=== PATIENT | female | born 2000 | race African-American/Black ===

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

== ENCOUNTER 2024-02-02 00:20 | Emergency (ER) | payer MEDICAID, SELFPAY ==
[2024-02-02] VITALS (7 sets, daily range): BP systolic 98–150; BP diastolic 49–81; PULSE 75–134; RESP 14–16; TEMP 36.8–36.9; O2SAT 94–98; BMI 15.9
[2024-02-02 01:47] LABS: Basophils Percent Auto 0.3 % (0-2); Eosinophils Percent Auto 0.2 % (0-4); Hematocrit 38.4 % (37.0-47.0); Hemoglobin 13.7 g/dl (12.0-16.0); Imm Gran Abs Auto 0.04 X10*3/uL (0.00-0.03); Imm Gran Pct Auto 0.7 % (0.0-0.4); Lymphocytes Absolute Auto 0.6 X10*3/uL (1.2-4.9); Lymphocytes Percent Auto 10.2 % (20-40); MANUAL DIFF FLAG NO; Mean Corpuscular HGB Conc 35.7 g/dl (31.0-35.0); Mean Corpuscular Hemoglobin 26.9 pg (27.0-33.0); Mean Corpuscular Volume 75.3 fL (80.0-98.0); Mean Platelet Volume 9.5 fL (9.4-12.3); Monocytes Absolute Auto 0.5 X10*3/uL (0.1-1.2); Neutrophils Absolute Auto 4.7 x10*3/uL (2.0-8.3); Neutrophils Percent Auto 79.6 % (45-73); Platelet Count 395 X10*3/uL (160-400); Red Cell Distribution Width 11.9 % (11.0-16.0); White Blood Count 5.9 X10*3/uL (4.8-10.8)
[2024-02-02 02:00] LABS: Anion Gap 18 (12-20); Blood Urea Nitrogen 13 mg/dL (9-16); Calcium 10.6 mg/dL (8.4-10.2); Carbon Dioxide 33 mmol/L (22-29); Chloride 81 mmol/L (96-108); Creatinine Clr Calc Pharmacy 77.9; Estimated Glomerular Filt Rate > 60; Glucose Random 127 mg/dL (60-115); Sodium 129 mmol/L (135-145)
[2024-02-02 02:03] LABS: Appearance Urine Hazy; Color Urine Orange; Glucose Urine UA Negative (Negative); Leukocyte Esterase Urine Trace (Negative); Nitrite Urine Positive (Negative); PH 6.5 (5.0-9.0); UMIC TRIGGER UACC YES; Urine Blood Negative (Negative); Urine Ketones Trace mg/dL (Negative); Urine Protein 100 (2+) mg/dL (Neg-Trace)
[2024-02-02 02:12] LABS: Bacteria Urine 4+ (None Seen); Squamous Epithelial Cell Urine >20 /HPF (0-2); UACC Culture Trigger YES
[2024-02-02 02:32] LABS: HCG Quantitative > 225000 mIU/mL
[2024-02-02] MEDS: 0.9 % Sodium Chloride 1,000 ML 999 ML IV (04:03)
[2024-02-02] MEDS: ondansetron HCL 4 MG/2 ML VIAL IVPUSH (04:08)
--- NOTE | 2024-02-02 06:31 | ED.NAVMDI ---
HPI - Nausea/Vomiting/Diarrhea General Chief complaint: Nausea/Vomiting/Diarrhea Stated complaint: weakness Time Seen by Provider: 02/02/24 06:29 Source: patient Mode of arrival: ambulatory Limitations: no limitations History of Present Illness HPI Narrative: 23 yo female who is 12 weeks presents to the ER for evaluation of 4 days of N/V. She states she has been vomiting everyday of her , not able to eat and losing weight. She was at [facility] 2 weeks ago for dehydration. She states she has heartburn and can't eat but she can tolerate liquids. She has been drinking cheery Adolfo Aid. She reports throat and rib pain associated with the daily vomiting. No abdominal pain, uterine cramping or vaginal bleeding. She is not taking medications for nausea. She has an appointment with [facility] tomorrow. She thinks so lost about 20 lbs elicited complaint: nausea and vomiting Onset (ago): week(s) Description of vomiting: bilious Associated nausea: Yes Associated abdominal pain: No Location of pain: none Exacerbating factors: eating Relieving factors: none Context: other () Associated symptoms: loss of appetite, malaise, nausea/vomiting and weakness Related Data Previous Rx's ?Medication ?Instructions ?Recorded ibuprofen 600 mg tablet 600 mg PO Q6H PRN pain #30 tabs 06/20/21 medroxyprogesterone 150 mg/mL 150 mg IM [id number] #1 mL 01/16/22 intramuscular suspension (Depo-Provera) ondansetron 4 mg disintegrating 4 mg PO DAILY PRN nausea and 02/02/24 tablet vomiting #7 tabs Allergies Allergy/AdvReac Type Severity Reaction Status Date / Time No Known Allergies Allergy Unverified 02/02/24 01:23 [No Known Allergies*] Review of Systems Review of Systems: Yes all other systems are reviewed and are negative Gastrointestinal: Gastrointestinal: Reports nausea PMFSH Social History Social History Alcohol intake: never Patient Tobacco Use Status: Never used Tobacco Smoked in Last 30 Days: No Use of substances other than those prescribed or required for medical reasons: No Substance Use Type: Marijuana Advance Directives: No Advance Directives Information Provided: No Patient : Yes Physical Exam Vital Signs: Vital Signs: Last Vital Signs Temp 98.4 F 02/02/24 03:21 Pulse 77 02/02/24 08:43 Resp 14 02/02/24 08:43 BP 99/49 L 02/02/24 08:43 Pulse Ox 98 02/02/24 08:43 O2 Del Method Room Air 02/02/24 08:43 BMI result Body Mass Index 15.9 Appearance: Alert. Oriented X3. No acute distress. Thin, frail Head: normocephalic, atraumatic. Eyes: Pupils equal, round and reactive to light. ENT: Pharynx normal. No tonsillar swelling or exudate. Neck: Normal inspection. Neck supple. CVS: Normal heart rate and rhythm. Pulses normal. Respiratory: No respiratory distress. Breath sounds normal. Abdomen: Soft and nontender. +BS x4 Skin: Skin warm and dry. Normal skin color. Normal skin turgor. No rashes. Extremities: No lower extremity edema. No joint swelling. Neuro/psych: Oriented X 3. No motor deficit. No sensory deficit. CN II-XII intact. Normal speech and cognition. Medications Administered Discontinued Medications Generic Name Dose Route Start Last Admin Trade Name Freq PRN Reason Stop Dose Admin Sodium Chloride 1,000 mls @ 999 mls/hr 02/02/24 04:00 02/02/24 05:01 Ns IV 02/02/24 05:00 Infused .Q1H1M BARB Infusion Lactated Ringer's 1,000 mls @ 999 mls/hr 02/02/24 06:45 02/02/24 08:28 Lr IV 02/02/24 07:45 Infused .Q1H1M BARB Infusion Ondansetron HCl 4 mg 02/02/24 03:53 02/02/24 04:08 Ondansetron Hcl 4 Mg/2 Ml Vial IVPUSH 02/02/24 03:54 4 mg ONCE ONE Administration Potassium Chloride 40 meq 02/02/24 06:45 02/02/24 07:04 Potassium Chloride Packet 20 Meq Packet PO 02/02/24 06:46 40 meq ONCE ONE Administration Medical Decision Making Medical Decision Making MDM Narrative: 23 yo female who is currently 12 weeks presenting with intractable nausea and vomiting with weight loss. Initially hypertensive and tachycardic on arrival, likely due to recent vomiting and pain. Labs show hypochloemic hyponatremia w/ Na 130, K, low 3.0, bicarb 33 from GI losses. No anemia. Normal renal function and BUN Given 1L NS and Zofran. 40KCl given along with another liter of IVF, LR. Enouraging PO intake Repeat chemistry is improved. she is now tolerating PO her repeat UA is not consistent with infection she has appointment w/ OB tomorrow stable for discharge home w/ close outpatient follow up Differential Diagnosis Differential Diagnoses: The differential diagnosis associated with the presentation includes hyperemesis gravidarum, dehydration, metabolic alkalosis 2/2 GI losses, electrolyte derangement, malnourishment Admission/Observation Consideration of admission/observation: Escalation of care including admission/observation considered Lab Data MDM Lab Attestation statement: I reviewed the patient's lab results. hypokalemia, hyponatremia 02/02/24 01:41 02/02/24 08:42 Labs: Lab Results 02/02/24 02/02/24 02/02/24 Range/Units 01:41 01:58 08:42 WBC 5.9 (4.8-10.8) X10*3/uL RBC 5.10 (4.20-5.50) X10*6/uL Hgb 13.7 (12.0-16.0) g/dl Hct 38.4 (37.0-47.0) % MCV 75.3 L (80.0-98.0) fL MCH 26.9 L (27.0-33.0) pg MCHC 35.7 H (31.0-35.0) g/dl RDW 11.9 (11.0-16.0) % Plt Count 395 (160-400) X10*3/uL MPV 9.5 (9.4-12.3) fL Immature Gran % (Auto) 0.7 H (0.0-0.4) % Neut % (Auto) 79.6 H (45-73) % Lymph % (Auto) 10.2 L (20-40) % [place] % (Auto) 9.0 (2-11) % Eos % (Auto) 0.2 (0-4) % Baso % (Auto) 0.3 (0-2) % Lymph # (Auto) 0.6 L (1.2-4.9) X10*3/uL [place] # (Auto) 0.5 (0.1-1.2) X10*3/uL Eos # (Auto) 0.0 (0.0-0.4) X10*3/uL Baso # (Auto) 0.0 (0.0-0.2) X10*3/uL Abs Immat Gran (auto) 0.04 H (0.00-0.03) X10*3/uL Absolute Neuts (auto) 4.7 (2.0-8.3) x10*3/uL Absolute Nucleated RBC 0.000 (0.0-0.012) X10*3/uL Nucleated RBC % (auto) 0.0 (0.0-0.2) /100WBC Sodium 129 L 131 L (135-145) mmol/L Potassium 3.0 L 3.7 D (3.3-5.1) mmol/L Chloride 81 L 93 L (96-108) mmol/L Carbon Dioxide 33 H 29 (22-29) mmol/L Anion Gap 18 13 (12-20) BUN 13 10 (9-16) mg/dL Creatinine 0.71 0.56 (0.5-1.4) mg/dL Estim Creat Clear Calc 77.9 98.8 Estimated GFR > 60 > 60 Random Glucose 127 H 99 (60-115) mg/dL Calcium 10.6 H 9.0 D (8.4-10.2) mg/dL Magnesium 1.6 (1.6-2.6) mg/dL Beta HCG, Quant > 302579 mIU/mL Urine Color [place] Urine Appearance Hazy Urine pH 6.5 (5.0-9.0) Ur Specific [place] 1.020 (1.005-1.025) Urine Protein 100 (2+) H (Neg-Trace) mg/dL Urine Glucose (UA) Negative (Negative) mg/dL Urine Ketones Trace (Negative) mg/dL Urine Blood Negative (Negative) Urine Nitrite Positive H (Negative) Ur Leukocyte Esterase Trace H (Negative) Urine RBC 6-10 H (0-2) /HPF Urine WBC 11-20 H (0-5) /HPF Ur Squamous Epith Cells >20 (0-2) /HPF Urine Bacteria 4+ (None Seen) Hyaline Casts 6-10 (0-2) /LPF 02/02/24 Range/Units 10:10 WBC (4.8-10.8) X10*3/uL RBC (4.20-5.50) X10*6/uL Hgb (12.0-16.0) g/dl Hct (37.0-47.0) % MCV (80.0-98.0) fL MCH (27.0-33.0) pg MCHC (31.0-35.0) g/dl RDW (11.0-16.0) % Plt Count (160-400) X10*3/uL MPV (9.4-12.3) fL Immature Gran % (Auto) (0.0-0.4) % Neut % (Auto) (45-73) % Lymph % (Auto) (20-40) % [place] % (Auto) (2-11) % Eos % (Auto) (0-4) % Baso % (Auto) (0-2) % Lymph # (Auto) (1.2-4.9) X10*3/uL [place] # (Auto) (0.1-1.2) X10*3/uL Eos # (Auto) (0.0-0.4) X10*3/uL Baso # (Auto) (0.0-0.2) X10*3/uL Abs Immat Gran (auto) (0.00-0.03) X10*3/uL Absolute Neuts (auto) (2.0-8.3) x10*3/uL Absolute Nucleated RBC (0.0-0.012) X10*3/uL Nucleated RBC % (auto) (0.0-0.2) /100WBC Sodium (135-145) mmol/L Potassium (3.3-5.1) mmol/L Chloride (96-108) mmol/L Carbon Dioxide (22-29) mmol/L Anion Gap (12-20) BUN (9-16) mg/dL Creatinine (0.5-1.4) mg/dL Estim Creat Clear Calc Estimated GFR Random Glucose (60-115) mg/dL Calcium (8.4-10.2) mg/dL Magnesium (1.6-2.6) mg/dL Beta HCG, Quant mIU/mL Urine Color Dark Yellow Urine Appearance Clear Urine pH >= 9.0 (5.0-9.0) Ur Specific [place] <= 1.005 (1.005-1.025) Urine Protein Negative (Neg-Trace) mg/dL Urine Glucose (UA) Negative (Negative) mg/dL Urine Ketones Trace (Negative) mg/dL Urine Blood Negative (Negative) Urine Nitrite Negative (Negative) Ur Leukocyte Esterase Negative (Negative) Urine RBC (0-2) /HPF Urine WBC (0-5) /HPF Ur Squamous Epith Cells (0-2) /HPF Urine Bacteria (None Seen) Hyaline Casts (0-2) /LPF External Record Review External record reviewed: Outpatient record, Prior outpatient labs and Prior outpatient radiology Prescription Management I considered prescription management with: Other (antiemetic) Social Determinants Patient?s care significantly limited by Social Determinants of Health including: Problems related to primary support group Critical Care Time Critical Care Time Critical Care Time: Yes Total Critical Care Time: 32 Attestation: I have personally provided critical care time exclusive of time spent on separately billable procedures. Time includes review of lab data, IVF boluses, repeating labs and reassessing, and monitoring for potential decompensation. Intervention performed as documented. Discharge Plan Discharge Clinical Impression: Hyperemesis gravidarum Patient Disposition: Home, Self-Care Instructions: Hyperemesis Gravidarum (ED) Additional Instructions: Your urine test did not show any infection Start Vitamin B6 and Unisom every night - this will help prevent nausea Take the prescribed medication as needed for nausea and vomiting It is important to get protein and calories in your diet - recommend protein shakes and Gatorade/Powerade for electrolytes NOT ADOLFO AID! Drink plenty of fluids Follow up with your doctor tomorrow as scheduled If you develop new or worsening symptoms call 911 or come back to the ER for further evaluation. Prescriptions: New ondansetron 4 mg tablet,disintegrating 4 mg PO DAILY PRN (Reason: nausea and vomiting) Qty: 7 0RF No Action ibuprofen 600 mg tablet 600 mg PO Q6H PRN (Reason: pain) Qty: 30 0RF medroxyprogesterone [Depo-Provera] 150 mg/mL suspension 150 mg IM [id number] Qty: 1 3RF Print Language: Faroese
[2024-02-02] MEDS: Potassium Chloride Packet 20 MEQ PACKET 40 MEQ PO (07:04)
[2024-02-02] MEDS: Lactated Ringers 1,000 ML 999 ML IV (07:04)
--- NOTE | 2024-02-02 07:42 | PC.NURSE ---
pt a&ox4, medicated w antiemetic overnight, no nausea/vomiting post medication. LR running, medicated per DEC.
--- NOTE | 2024-02-02 08:36 | PC.NURSE ---
Pt had standing weight taken. 40.4 Kg
[2024-02-02 09:00] LABS: Anion Gap 13 (12-20); Blood Urea Nitrogen 10 mg/dL (9-16); Carbon Dioxide 29 mmol/L (22-29); Chloride 93 mmol/L (96-108); Creatinine Clr Calc Pharmacy 98.8; Estimated Glomerular Filt Rate > 60; Glucose Random 99 mg/dL (60-115); Magnesium 1.6 mg/dL (1.6-2.6); Potassium 3.7 mmol/L (3.3-5.1); Sodium 131 mmol/L (135-145)
[2024-02-02 10:20] LABS: Appearance Urine Clear; Color Urine Dark Yellow; Glucose Urine UA Negative (Negative); Leukocyte Esterase Urine Negative (Negative); Nitrite Urine Negative (Negative); PH >= 9.0 (5.0-9.0); Specific Gravity - Urine <= 1.005 (1.005-1.025); Urine Blood Negative (Negative); Urine Ketones Trace mg/dL (Negative); Urine Protein Negative (Neg-Trace)
== END 2024-02-02 10:58 | disposition home or self-care (01) ==
PROVIDERS: Physician Assistant; Emergency Provider Emergency Medicine
DX: O21.0 Mild hyperemesis gravidarum (principal); Z3A.12 12 weeks gestation of pregnancy
CPT/HCPCS: 36415; 80048; 81001; 81003; 83735; 84702; 85025; 87086; 96361; 96374; 99284; J2405; J7120